=== PATIENT | male | born 1960 | race Asian ===

== ENCOUNTER 2020-12-18 08:36 | Day surgery (SDC) | payer OTHER ==
[2020-12-16 11:57] VITALS: BMI 30.4
[~2020-12-18 08:36] MED LIST: Lidocaine 1% MPF 2 ML VIAL ONE
[2020-12-18] MEDS ORDERED: PROPOFOL 40 ML ONE (10:41)
== END 2020-12-18 12:15 | disposition home or self-care (01) ==
LOC: CSHSDC 08:36
PROVIDERS: ATTEND Internal Medicine Gastroenterology
DX: Z12.11 Encounter for screening for malignant neoplasm of colon (principal); K63.5 Polyp of colon; K57.30 Diverticulosis of large intestine without perforation or abscess without bleeding; K64.9 Unspecified hemorrhoids
CPT/HCPCS: 88305; J2704

== ENCOUNTER 2021-01-29 14:00 | Observation (INO) | payer OTHER ==
[2021-02-02 11:32] VITALS: BMI 30.1
[2021-02-03] MEDS ORDERED: Lidocaine 1% MPF 2 ML VIAL ONE (05:46)
[2021-02-03] MEDS ORDERED: Acetaminophen 500 MG TAB ONE (05:46)
[2021-02-03] MEDS ORDERED: CeleCOXIB 100 MG CAP ONE (05:46)
[2021-02-03] MEDS ORDERED: Gabapentin 300 MG CAP ONE (05:46)
[2021-02-03] MEDS ORDERED: EPINEPHrine 1 MG/ML AMP ONE ×2 (06:21→06:30)
[2021-02-03] MEDS ORDERED: Ketorolac Tromethamine 30 MG/ML VIAL ONE (06:21)
[2021-02-03] MEDS ORDERED: Tranexamic Acid 1,000 MG/10 ML VIAL ONE (06:22)
[2021-02-03] MEDS ORDERED: Ropivacaine 0.2% HCl/PF 40 ML ONE (06:22)
[2021-02-03] MEDS ORDERED: Neomycin-Polymyxin 1 ML AMP ONE (06:23)
[2021-02-03] MEDS ORDERED: Heparin 10,000 UNITS/ 10 ML VIAL ONE (06:23)
[2021-02-03] MEDS ORDERED: Lidocaine 0.5%/Epinephrine 1:200,000 50 ml Vial ONE (06:23)
[2021-02-03] MEDS ORDERED: Lidocaine 1% (PF) 30 ML VIAL ONE (06:30)
[2021-02-03] MEDS ORDERED: Ropivacaine 0.5% HCl/PF (150 MG/30 ML VIAL) ONE (06:39)
[2021-02-03] MEDS ORDERED: Ropivacaine 0.2% HCl/PF 20 ML ONE (06:39)
[2021-02-03] MEDS ORDERED: Midazolam HCl 2 mg/2 ml Vial ONE (06:39)
[2021-02-03] MEDS ORDERED: Fentanyl 100 MCG/2 ML VIAL ONE ×2 (06:39→07:06)
[2021-02-03] MEDS ORDERED: Lidocaine 1% PF 5 ML VIAL ONE (06:40)
[2021-02-03] MEDS ORDERED: Morphine 4 MG/ML VIAL SLOW IVP PRN (06:58)
[2021-02-03] MEDS ORDERED: Ondansetron PF 4 MG/2 ML Vial IVP PRN (06:58)
[2021-02-03] MEDS ORDERED: Acetaminophen 325 MG TAB PO PRN (06:58)
[2021-02-03] MEDS ORDERED: traMADol HCl 50 MG TAB PO PRN (06:58)
[2021-02-03] MEDS ORDERED: Promethazine HCl 25 MG/ML VIAL IM PRN ×2 (06:58→09:10)
[2021-02-03] MEDS ORDERED: Zolpidem Tartrate 5 MG TAB PO PRN (06:58)
[2021-02-03] MEDS ORDERED: HYDROcodone/Acetaminophen 10/325 mg Tablet PO PRN (06:58)
[2021-02-03] MEDS ORDERED: diphenhydrAMINE 25 MG CAP PO PRN (06:58)
[2021-02-03] MEDS ORDERED: Lidocaine 2% PF 5 ML VIAL ONE (07:06)
[2021-02-03] MEDS ORDERED: PROPOFOL 20 ML ONE (07:06)
[2021-02-03] MEDS ORDERED: PHENYLEPHRINE-NS 100 MCG/ML 10 ML SYRINGE ONE (07:18)
[2021-02-03] MEDS ORDERED: ePHEDrine 50 MG/ML VIAL ONE (07:23)
[2021-02-03] MEDS ORDERED: Dexamethasone 20 MG/5 ML VIAL ONE (07:27)
[2021-02-03] MEDS ORDERED: Ondansetron PF 4 MG/2 ML Vial ONE (07:27)
[2021-02-03] MEDS ORDERED: Esmolol 100 MG/10 ML VIAL ONE (07:37)
[2021-02-03] MEDS ORDERED: HYDROmorphone 2 MG/ML VIAL SLOW IVP PRN (09:10)
[2021-02-03] MEDS ORDERED: Promethazine HCl 25 MG/ML VIAL SLOW IVP PRN (09:10)
[2021-02-03] MEDS ORDERED: PACU-Morphine 4MG/ML VIAL SLOW IVP PRN (09:10)
[2021-02-03] MEDS ORDERED: Ondansetron HCl/PF 4 MG/2 ML Vial IVP PRN (09:10)
[2021-02-03] MEDS ORDERED: Acetaminophen 500 MG TAB PO PRN (13:44)
[2021-02-03] MEDS ORDERED: Albuterol Sulfate HFA (OR ONLY) INH PRN (13:49)
[2021-02-03] MEDS: Sodium Chloride 0.9% 1,000 ML IV SCH ×2 (14:04→14:40)
[2021-02-03] MEDS: Ketorolac Tromethamine 30 MG/ML VIAL IVP SCH ×2 (14:39→22:33)
[2021-02-03] MEDS: Ferrous Gluconate 324 MG TAB PO SCH (14:40)
[2021-02-03] MEDS: CEFAZOLIN 2 GM in Premix Bag 1 BAG IVPB SCH ×2 (14:40→22:32)
[2021-02-03] MEDS ORDERED: metFORMIN 500 MG TAB PO SCH (21:00)
[2021-02-03] MEDS ORDERED: Atorvastatin Calcium 40 MG TAB PO SCH (21:00)
[2021-02-03] MEDS: Senokot S 8.6-50 MG TAB PO SCH (21:07)
[2021-02-03] MEDS: Losartan Potassium 50 MG TAB PO SCH (21:08)
[2021-02-03] MEDS: Aspirin 81 mg Enteric Coated Tablet PO SCH (21:08)
[2021-02-04] MEDS: Sodium Chloride 0.9% 1,000 ML IV SCH ×2 (01:10→12:32)
[2021-02-04 05:25] LABS: Hemoglobin 11.2 g/dL (13.5-17.5); Mean Corpuscular HGB CONC 32.4 g/dL (32.0-36.0); Mean Corpuscular Hemoglobin 31.8 pg (27.0-33.0); Mean Corpuscular Volume 98.3 fl (81.2-95.1); Mean Platelet Volume 8.6 fl (7.4-10.4); Platelet Count 172 10x3/uL (150-450); RBC Distribution Width 12.6 % (11.5-14.5); Red Blood Cell (RBC) Count 3.52 10x6/uL (4.32-5.72); White Blood Cell (WBC) Count 12.3 10x3/uL (3.5-10.5)
[2021-02-04] MEDS: Ketorolac Tromethamine 30 MG/ML VIAL IVP SCH ×2 (06:11→14:24)
[2021-02-04] MEDS ORDERED: Multivitamin W/ Minerals 1 TAB PO SCH (09:00)
[2021-02-04] MEDS ORDERED: Aspirin 81 mg Enteric Coated Tablet PO SCH (09:00)
[2021-02-04] MEDS ORDERED: Amlodipine 5 MG TAB PO SCH (09:00)
[2021-02-04] MEDS: Ferrous Gluconate 324 MG TAB PO SCH (09:42)
[2021-02-04] MEDS: Aspirin 81 mg Enteric Coated Tablet PO SCH (09:42)
[2021-02-04] MEDS: Losartan Potassium 50 MG TAB PO SCH (09:42)
[2021-02-04] MEDS: Senokot S 8.6-50 MG TAB PO SCH (09:42)
[2021-02-04 11:43] VITALS: BP 144/83; TEMP 98.4
== END 2021-02-04 15:58 | disposition home or self-care (01) ==
LOC: CSHTELE 02-03 05:58 → INTOOBSV 02-03 05:58 → CSHTELE 02-03 13:10
PROVIDERS: ADMIT Orthopaedic Surgery; ATTEND Orthopaedic Surgery
DX: M17.12 Unilateral primary osteoarthritis, left knee (principal)
CPT/HCPCS: 36415; 36416; 85027; J0171; J0690; J0735; J1100; J1644; J1885; J2001; J2250; J2405; J2704; J2795; J3010; J3370; J3490; J7050

== ENCOUNTER 2021-01-29 14:26 | Outpatient (CLI) | payer OTHER ==
[2021-01-29 15:29] LABS: Hemoglobin 14.7 g/dL (13.5-17.5); Mean Corpuscular HGB CONC 33.5 g/dL (32.0-36.0); Mean Corpuscular Hemoglobin 32.4 pg (27.0-33.0); Mean Corpuscular Volume 96.7 fl (81.2-95.1); Mean Platelet Volume 8.7 fl (7.4-10.4); Platelet Count 208 10x3/uL (150-450); RBC Distribution Width 12.3 % (11.5-14.5); Red Blood Cell (RBC) Count 4.54 10x6/uL (4.32-5.72)
[2021-01-29 15:45] LABS: Anion Gap 14 mmol/L (10-20); BUN (Urea Nitrogen) 15 mg/dL (8.4-25.7); Calc. Creatinine Clearance 0 mL/min (70-130); Calcium 9.2 mg/dL (7.8-10.44); Carbon Dioxide 26 mmol/L (23-31); Chloride 106 mmol/L (98-107); Glucose 91 mg/dL (80-115); Potassium 4.4 mmol/L (3.5-5.1); Sodium 142 mmol/L (136-145)
[2021-01-30 01:49] LABS: SARS-CoV-2 PCR by NAA Not Detected (NotDetected)
== END 2021-01-29 14:27 | disposition home or self-care (01) ==
LOC: CSHLAB 14:26
PROVIDERS: ATTEND Orthopaedic Surgery
DX: Z01.818 Encounter for other preprocedural examination (principal); Z20.822 Contact with and (suspected) exposure to COVID-19
CPT/HCPCS: 80048; 83036; 85027; 87081; 87635; 93005; 93010; U0003; U0005